=== PATIENT | female | born 1975 | race Caucasian/White ===

== ENCOUNTER 2017-08-29 13:59 | Outpatient (CLI) | payer OTHER | END 2017-08-29 14:52 | disposition home or self-care (01) | LOC: NST 13:59 | DX: Z34.83 Encounter for supervision of other normal pregnancy, third trimester (principal) ==

== ENCOUNTER 2017-09-06 09:54 | Inpatient (IN) | payer OTHER ==
[~2017-09-06] VITALS: Ht 167.6 cm; Wt 3.2 kg
[2017-09-06] MEDS ORDERED: PRENATAL TABLE1 EAC2 PO (10:26)
== END 2017-09-09 10:19 | DRG 766 ==
LOC: LDR 09:54 → OB/GYN 09:54 → O/R 21:56 → OB/GYN 22:51
PROVIDERS: Obstetrics & Gynecology Maternal & Fetal Medicine
PROC: 3E033VJ Introduction of Other Hormone into Peripheral Vein, Percutaneous Approach (ICD-10-PCS; 2017-09-06)
PROC: 4A033R1 Measurement of Arterial Saturation, Peripheral, Percutaneous Approach (ICD-10-PCS; 2017-09-06)
PROC: 4A1HXCZ Monitoring of Products of Conception, Cardiac Rate, External Approach (ICD-10-PCS; 2017-09-06)
PROC: 10D00Z1 Extraction of Products of Conception, Low, Open Approach (ICD-10-PCS; principal; 2017-09-06 20:00)
DX: O65.4 Obstructed labor due to fetopelvic disproportion, unspecified (principal); O99.824 Streptococcus B carrier state complicating childbirth; O69.2XX0 Labor and delivery complicated by other cord entanglement, with compression, not applicable or unspecified; Z3A.39 39 weeks gestation of pregnancy; Z37.0 Single live birth; O09.513 Supervision of elderly primigravida, third trimester